=== PATIENT | female | born 1935 | race Caucasian/White ===

== ENCOUNTER 2016-12-11 20:55 | Inpatient (IN) | payer MEDICARE, BC ==
[~2016-12-11] VITALS: Ht 162.6 cm; Wt 82.3 kg
[2016-12-12] VITALS (7 sets, daily range): BP systolic 133–178; RESP 16–20; TEMP 97.7–98.2; Ht 162.6 cm; Wt 82.3 kg
[2016-12-12] MEDS ORDERED: MORPHINE 4 MG/ML SYR ONE ×2 (00:07→02:12)
[2016-12-12] MEDS ORDERED: SODIUM CHLORIDE 0.9% 1,000 ML ONE (00:07)
[2016-12-12] MEDS ORDERED: ONDANSETRON 4 MG VIAL ONE ×2 (00:07→02:12)
[2016-12-12] MEDS ORDERED: SODIUM CHLORIDE 0.9% 1,000 ML IV SCH (03:35)
[2016-12-12] MEDS ORDERED: PHARMACY TO DOSE LEVAQUIN IV SCH (03:35)
[2016-12-12] MEDS ORDERED: ONDANSETRON 4 MG VIAL IV PRN (03:35)
[2016-12-12] MEDS ORDERED: SALINE FLUSH 10 ML FLUSH PRN (03:35)
[2016-12-12] MEDS: SODIUM CHLORIDE 0.9% FLUSH BAG 500 ML IV SCH (06:00)
[2016-12-12] MEDS: MORPHINE 2 MG/ML SYR IV PRN ×2 (06:22→10:15)
[2016-12-12] MEDS: Meropenem 500 MG in SODIUM CHLORIDE 0.9% 100 ML IV SCH ×2 (07:51→19:50)
[2016-12-12] MEDS: SALINE FLUSH 10 ML FLUSH SCH ×2 (07:51→19:43)
[2016-12-12] MEDS ORDERED: SODIUM CHLOR 0.45% W/KCL 20MEQ 1,000 ML IV SCH (10:35)
[2016-12-12] MEDS: CYANOCOBALAMIN/FA/PYRIDOX TAB PO SCH (11:37)
[2016-12-12] MEDS: CHOLECALCIFEROL 400 UNITS TAB PO SCH (11:37)
[2016-12-12] MEDS: SACCHA BOULARDII 250MG CAP PO SCH (11:37)
[2016-12-12] MEDS: METOPROLOL XL 25 MG TAB PO SCH (11:38)
[2016-12-12] MEDS: amLODIPine 5 MG TAB PO SCH (20:42)
[2016-12-13 03:10] VITALS: BP_SYST 135; RESP 20; TEMP 98.2
[2016-12-13] MEDS: SODIUM CHLORIDE 0.9% FLUSH BAG 500 ML IV SCH (04:46)
[2016-12-13 07:44] VITALS: BP_SYST 151; RESP 18; TEMP 98.3
[2016-12-13] MEDS: Meropenem 500 MG in SODIUM CHLORIDE 0.9% 100 ML IV SCH (08:00)
[2016-12-13] MEDS: SALINE FLUSH 10 ML FLUSH SCH ×2 (08:00→20:00)
[2016-12-13] MEDS ORDERED: MISSING DOSE XX ONE (09:30)
[2016-12-13] MEDS: METOPROLOL XL 25 MG TAB PO SCH (09:35)
[2016-12-13] MEDS: MORPHINE ER 15 MG TAB PO SCH ×2 (09:36→21:41)
[2016-12-13] MEDS: CYANOCOBALAMIN/FA/PYRIDOX TAB PO SCH (09:36)
[2016-12-13] MEDS: CHOLECALCIFEROL 400 UNITS TAB PO SCH (09:36)
[2016-12-13] MEDS: SACCHA BOULARDII 250MG CAP PO SCH (09:36)
[2016-12-13] MEDS: GABAPENTIN 100 MG CAP PO SCH ×3 (10:11→21:00)
[2016-12-13 12:20] VITALS: BP_SYST 148; RESP 18; TEMP 98.2
[2016-12-13 14:26] VITALS: BP_SYST 135; RESP 16; TEMP 98
[2016-12-13 19:31] VITALS: BP_SYST 111; RESP 18; TEMP 98
[2016-12-13] MEDS: SODIUM CHLOR 0.45% W/KCL 20MEQ 1,000 ML IV SCH (19:51)
[2016-12-13] MEDS: amLODIPine 5 MG TAB PO SCH (21:41)
[2016-12-13 23:20] VITALS: BP_SYST 136; RESP 18; TEMP 97.5
[2016-12-14 04:54] VITALS: BP_SYST 136; RESP 20; TEMP 98.1
[2016-12-14] MEDS: SODIUM CHLORIDE 0.9% FLUSH BAG 500 ML IV SCH (06:00)
[2016-12-14 07:05] VITALS: BP_SYST 151; RESP 20; TEMP 97.9
[2016-12-14] MEDS: SALINE FLUSH 10 ML FLUSH SCH ×2 (07:50→20:03)
[2016-12-14] MEDS: GABAPENTIN 100 MG CAP PO SCH ×3 (07:54→20:03)
[2016-12-14] MEDS: SODIUM CHLOR 0.45% W/KCL 20MEQ 1,000 ML IV SCH (07:58)
[2016-12-14] MEDS: METOPROLOL XL 25 MG TAB PO SCH (08:51)
[2016-12-14] MEDS: CHOLECALCIFEROL 400 UNITS TAB PO SCH (08:51)
[2016-12-14] MEDS: SACCHA BOULARDII 250MG CAP PO SCH (08:51)
[2016-12-14] MEDS: MORPHINE ER 15 MG TAB PO SCH ×2 (08:51→20:03)
[2016-12-14] MEDS: CYANOCOBALAMIN/FA/PYRIDOX TAB PO SCH (08:51)
[2016-12-14 11:30] VITALS: BP_SYST 113; RESP 20; TEMP 97.9
[2016-12-14 15:06] VITALS: BP_SYST 105; RESP 20; TEMP 98
[2016-12-14 19:35] VITALS: BP_SYST 114; RESP 16; TEMP 98
[2016-12-14] MEDS: amLODIPine 5 MG TAB PO SCH (20:02)
[2016-12-14 23:16] VITALS: BP_SYST 139; RESP 18; TEMP 98.5
[2016-12-15 02:39] VITALS: BP_SYST 151; RESP 18; TEMP 98.6
[2016-12-15] MEDS: SODIUM CHLORIDE 0.9% FLUSH BAG 500 ML IV SCH ×2 (05:39→21:20)
[2016-12-15 07:29] VITALS: BP_SYST 128; RESP 16; TEMP 97.7
[2016-12-15] MEDS: CHOLECALCIFEROL 400 UNITS TAB PO SCH (08:46)
[2016-12-15] MEDS: SACCHA BOULARDII 250MG CAP PO SCH (08:46)
[2016-12-15] MEDS: SALINE FLUSH 10 ML FLUSH SCH ×2 (08:46→20:23)
[2016-12-15] MEDS: CYANOCOBALAMIN/FA/PYRIDOX TAB PO SCH (08:46)
[2016-12-15] MEDS: METOPROLOL XL 25 MG TAB PO SCH (08:48)
[2016-12-15] MEDS: MORPHINE ER 15 MG TAB PO SCH ×2 (08:48→20:22)
[2016-12-15] MEDS: GABAPENTIN 100 MG CAP PO SCH ×3 (08:49→20:26)
[2016-12-15] MEDS ORDERED: BISACODYL EC 5 MG TAB PO PRN (10:40)
[2016-12-15] MEDS ORDERED: BISACODYL 10 MG SUPP RECTAL PRN (10:40)
[2016-12-15 10:59] VITALS: BP_SYST 131; RESP 20; TEMP 98.5
[2016-12-15] MEDS: POLYETHYLENE GLYCOL 17 GM PACKET PO SCH (12:24)
[2016-12-15] MEDS: DOCUSATE SOD 100 MG CAP PO SCH ×2 (12:24→20:22)
[2016-12-15] MEDS ORDERED: MISSING DOSE XX ONE (13:20)
[2016-12-15 15:44] VITALS: BP_SYST 110; RESP 18; TEMP 98.1
[2016-12-15 20:15] VITALS: BP_SYST 118; RESP 20; TEMP 99.2
[2016-12-15] MEDS: amLODIPine 5 MG TAB PO SCH (20:22)
[2016-12-16] VITALS (7 sets, daily range): BP systolic 103–121; RESP 16–20; TEMP 98–98.8
[2016-12-16] MEDS: SACCHA BOULARDII 250MG CAP PO SCH (08:10)
[2016-12-16] MEDS: CHOLECALCIFEROL 400 UNITS TAB PO SCH (08:10)
[2016-12-16] MEDS: CYANOCOBALAMIN/FA/PYRIDOX TAB PO SCH (08:10)
[2016-12-16] MEDS: SALINE FLUSH 10 ML FLUSH SCH ×2 (08:11→20:40)
[2016-12-16] MEDS: POLYETHYLENE GLYCOL 17 GM PACKET PO SCH (08:11)
[2016-12-16] MEDS: DOCUSATE SOD 100 MG CAP PO SCH ×2 (08:11→20:39)
[2016-12-16] MEDS: GABAPENTIN 100 MG CAP PO SCH ×3 (08:12→20:40)
[2016-12-16] MEDS: MORPHINE ER 15 MG TAB PO SCH ×2 (08:13→20:39)
[2016-12-16] MEDS: METOPROLOL XL 25 MG TAB PO SCH (12:20)
[2016-12-16] MEDS: SODIUM CHLORIDE 0.9% FLUSH BAG 500 ML IV SCH (19:46)
[2016-12-16] MEDS: amLODIPine 5 MG TAB PO SCH (20:40)
[2016-12-17 03:48] VITALS: BP_SYST 112; RESP 18; TEMP 98.4
[2016-12-17 07:00] VITALS: BP_SYST 139; RESP 18; TEMP 97.8
[2016-12-17] MEDS: SALINE FLUSH 10 ML FLUSH SCH ×2 (09:54→20:29)
[2016-12-17] MEDS: Senna/DSS 50/8.6 MG TAB PO SCH ×2 (09:55→20:28)
[2016-12-17] MEDS: MORPHINE ER 15 MG TAB PO SCH ×2 (09:55→20:28)
[2016-12-17] MEDS: POLYETHYLENE GLYCOL 17 GM PACKET PO SCH (09:56)
[2016-12-17] MEDS: SACCHA BOULARDII 250MG CAP PO SCH (09:56)
[2016-12-17] MEDS: DOCUSATE SOD 100 MG CAP PO SCH ×2 (09:56→20:28)
[2016-12-17] MEDS: CYANOCOBALAMIN/FA/PYRIDOX TAB PO SCH (09:57)
[2016-12-17] MEDS: CHOLECALCIFEROL 400 UNITS TAB PO SCH (09:57)
[2016-12-17] MEDS: METOPROLOL XL 25 MG TAB PO SCH (09:58)
[2016-12-17 11:00] VITALS: BP_SYST 123; RESP 18; TEMP 97.6
[2016-12-17 15:00] VITALS: BP_SYST 120; RESP 18; TEMP 97.6
[2016-12-17 19:09] VITALS: BP_SYST 119; RESP 20; TEMP 98.3
[2016-12-17] MEDS: amLODIPine 5 MG TAB PO SCH (20:28)
[2016-12-17 22:50] VITALS: BP_SYST 132; RESP 20; TEMP 97.8
[2016-12-18] VITALS (7 sets, daily range): BP systolic 103–125; RESP 18–20; TEMP 97.8–98.3
[2016-12-18] MEDS: SODIUM CHLORIDE 0.9% FLUSH BAG 500 ML IV SCH (05:57)
[2016-12-18] MEDS: Senna/DSS 50/8.6 MG TAB PO SCH ×2 (09:40→22:04)
[2016-12-18] MEDS: CYANOCOBALAMIN/FA/PYRIDOX TAB PO SCH (09:40)
[2016-12-18] MEDS: SALINE FLUSH 10 ML FLUSH SCH ×2 (09:40→22:03)
[2016-12-18] MEDS: DOCUSATE SOD 100 MG CAP PO SCH ×2 (09:40→22:04)
[2016-12-18] MEDS: SACCHA BOULARDII 250MG CAP PO SCH (09:40)
[2016-12-18] MEDS: POLYETHYLENE GLYCOL 17 GM PACKET PO SCH (09:40)
[2016-12-18] MEDS: METOPROLOL XL 25 MG TAB PO SCH (09:41)
[2016-12-18] MEDS: CHOLECALCIFEROL 400 UNITS TAB PO SCH (09:41)
[2016-12-18] MEDS: MORPHINE ER 15 MG TAB PO SCH ×2 (09:41→21:00)
[2016-12-18] MEDS: amLODIPine 5 MG TAB PO SCH (22:04)
[2016-12-19 03:21] VITALS: BP_SYST 107; RESP 18; TEMP 97.8
[2016-12-19] MEDS: SODIUM CHLORIDE 0.9% FLUSH BAG 500 ML IV SCH (05:02)
[2016-12-19 07:34] VITALS: BP_SYST 133; RESP 18; TEMP 97.5
[2016-12-19] MEDS: SALINE FLUSH 10 ML FLUSH SCH (09:47)
[2016-12-19] MEDS: CYANOCOBALAMIN/FA/PYRIDOX TAB PO SCH (09:48)
[2016-12-19] MEDS: CHOLECALCIFEROL 400 UNITS TAB PO SCH (09:48)
[2016-12-19] MEDS: MORPHINE ER 15 MG TAB PO SCH (09:48)
[2016-12-19] MEDS: Senna/DSS 50/8.6 MG TAB PO SCH (09:48)
[2016-12-19] MEDS: POLYETHYLENE GLYCOL 17 GM PACKET PO SCH (09:48)
[2016-12-19] MEDS: METOPROLOL XL 25 MG TAB PO SCH (09:49)
[2016-12-19] MEDS: SACCHA BOULARDII 250MG CAP PO SCH (09:50)
[2016-12-19] MEDS: DOCUSATE SOD 100 MG CAP PO SCH (09:50)
[2016-12-19 11:09] VITALS: BP_SYST 113; RESP 18; TEMP 97.4
[2016-12-19 15:46] VITALS: BP_SYST 120; RESP 18; TEMP 97.7
[2016-12-19 16:05] VITALS: BP_SYST 120; RESP 18; TEMP 97.7
[2016-12-19 16:17] VITALS: BP_SYST 120; RESP 18; TEMP 97.7
== END 2016-12-19 17:36 | DRG 552 ==
LOC: ENRESERVDT → ENRESERVTM → ER 20:55 → EMR 20:56 → 4NT 12-12 06:05 → OBSVTOIN 12-12 11:16 → ENPENDDIS 12-12 11:16
PROVIDERS: ADMIT Internal Medicine; ATTEND Internal Medicine
DX: M54.5 Low back pain (principal); J44.9 Chronic obstructive pulmonary disease, unspecified; E11.9 Type 2 diabetes mellitus without complications; E86.1 Hypovolemia; Z91.81 History of falling; M62.3 Immobility syndrome (paraplegic); M19.90 Unspecified osteoarthritis, unspecified site; R53.1 Weakness
CPT/HCPCS: 36415; 71010; 72100; 80053; 81003; 82306; 82553; 82607; 82746; 83735; 84439; 84443; 84484; 85025; 85379; 85652; 86141; 87040; 87088; 94799; 96361; 96374; 96375; 96376; 99219